=== PATIENT | male | born 1965 | race Caucasian/White ===

== ENCOUNTER → 2019-04-10 09:12 | Outpatient (CLI) | payer OTHER ==
--- NOTE | 2019-04-14 09:55 | EC ---
PATIENT:ADALID CLAYTON DATE OF SERVICE: 04/10/19 SEX: M MEDICAL RECORD: [id number] DATE OF : 63 [facility] AGE OF PATIENT: 53 ADMISSION DATE: 04/10/19 REFERRING PHYSICIAN: INTERPRETING PHYSICIAN: PAM KENT MD ECHOCARDIOGRAM REPORT ECHO CHARGES 4 ECHO COMPLETE Date: 04/10/19 CLINICAL DIAGNOSIS: MURMUR ECHOCARDIOGRAPHIC MEASUREMENTS (adult normal given) AC root (d.<3.7cm) 2.9 cm LV Septum d (<1.2 cm> 1.4 cm Valve Excursion 1.6 cm LV Septum (systole) 1.6 cm Left Atria (s.<4.0cm> 3.6 cm LVPW d(<1.2cm) 1.5 cm RV (d.<2.3cm) 3.9 cm LVPW (sytole) 1.8 cm LV diastole(<5.6CM) 5.5 cm MV E-F(>70mm/sec) cm LV systole 3.9 cm LVOT Diameter 1.8 cm MV exc.(>10mm) 1.2 cm Est.ejection fraction (50-75%) % DOPPLER: LVIT cm/sec A 75.0 cm/sec E 61.0 cm/sec LA cm/sec RVSP 21 mmHg LVOT 105 cm/sec AOP1/2T m/s Asc. Ao 123 cm/sec RVOT 124 cm/sec RA cm/sec PA 140 cm/sec AV Gradient Peak 6.09 mmHg AV Mean 2.95 mmHg AV Area 2.4 cm MV Gradient Peak 4.19 mmHg MV Mean 1.77 mmHg MV Area cm COMMENTS: Director Game: 2 MIKE BENTLEY Hooker Off: 3 Dr. Granados TAPE# PACS Pericardial Effusion N DATE OF SERVICE: Adequate 2D, color flow, spectral Doppler, and M-Mode. Mild LVH. LV internal dimensions are normal. Wall motion is normal. EF is greater than or equal to 55%. Aortic valve is tricuspid. No evidence of stenosis by Doppler interrogation. Left atrium normal at 3.6 cm. Mitral valve shows no prolapse. Trace MR. Right-sided chambers grossly normal. Trace TR. TRANSINT:[id number] Voice Confirmation ID: [id number] DOCUMENT ID: [id number] ECHOCARDIOGRAM REPORT [id number] FORREST,ADALID CALLUM PAM KENT MD at 0955 CC: [id number] DICTATION DATE: 04/11/19 0842 TELECOMMUNICATIONS LINE INSTALLER: 04/11/19 1137 DEP CLI 04/10/19 [facility] [address] [place] [address]
== END | disposition home or self-care (01) ==
LOC: D.HCCARDIO 09:12
PROVIDERS: ATTEND Internal Medicine Cardiovascular Disease
DX: R01.1 Cardiac murmur, unspecified (principal)

== ENCOUNTER 2019-05-12 11:04 | Outpatient (CLI) | payer OTHER ==
[~2019-05-12] VITALS: Ht 182.9 cm; Wt 181.8 kg
--- NOTE | ~2019-05-12 | HEMODYNAMI ---
PATIENT:ADALID CLAYTON MEDICAL RECORD: [id number] : 63 LOCATION:D.CAT ADMISSION DATE: 05/12/19 Generatedon:05/12/201913:31 Patient name: ADALID CLAYTON Patient #: [id number] SSN: : 1965 Date of study: 05/12/2019 Page: Of Hemodynamic Procedure Report Patient Data Patient Demographics Procedure consent was obtained First Name: ADALID Gender: Male Last Name: FORREST : 1965 [facility] Initial: CALLUM Age: 53 year(s) Patient #: [id number] Race: Unknown Additional ID: [id number] Contact details Address: [place] [address] State: [place] City: [place] Zip code: [address] Past Medical History Allergies: No known allergies Admission Admission Data Admission Date: 05/12/2019 Admission Time: 11:04 Weight (lbs.): 401.24 Weight (kg.): 182 Lab Results Lab Result Date: 05/12/2019 Lab Result Time: 0:00 Biochemistry Name Units Result Min Max BUN mg/dl 14 --(--*-)-- 7 18 Creatinine mg/dl 1 --(--*-)-- 0.6 1.3 eGFR ml/min 82.59943 -*(----)-- 90 120 NONAFRICAN CBC Name Units Result Min Max Hematocrit % 43.8 --(*---)-- 42 54 Hemoglobin g/dl 15.4 --(-*--)-- 13.5 17.5 Procedure Procedure Types Cath Procedure Diagnostic Procedure LHC [facility] w/Coronaries Sedation Charges Moderate Sedation up to 15 minutes Procedure Description Procedure Date Procedure Date: 05/12/2019 Procedure Start Time: 13:11 Procedure End Time: 13:28 Procedure Staff Name Function Aramis Lara MD Performing Physician Raina Melton RT Monitor Chun Tejada RT Scrub Jose Nichols RN Nurse Procedure Data Cath Procedure Fluoroscopy Diagnostic fluoroscopy Total fluoroscopy Time: 1.3 time: 1.3 min min Diagnostic fluoroscopy Total fluoroscopy dose: 758 dose: 758 mGy mGy Contrast Material Contrast Material Type Amount (ml) Isovue 300 56 Entry Location Entry Primary Successful Side Size Upsize Upsize Entry Closure Succes sful Closure Location (Fr) 1 (Fr) 2 (Fr) Remarks Device Remarks Femoral Right 5 Fr Exoseal artery Estimated blood loss: 5 ml Diagnostic catheters Device Type Used For End Catheter Placement MULTIPACK JL 4.0 5Fr Procedure catheter MULTIPACK 3DRC 5Fr Procedure catheter MULTIPACK Pigtail 5 Fr Procedure catheter Procedure Complications No complications Procedure Medications Medication Administration Route Dosage 0.9% NaCl I.V. 100 ml/hr Oxygen etCO2 Nasal cannula 2 l/min Heparin Flush Bag added to field 2 bags (1000units/500ml NS) Lidocaine 2% added to field 20 Radial Cocktail added to field 1 syringe (Verapamil 2mg/Nitro 400mcg/Heparin 1500units) Versed I.V. 2 mg Fentanyl I.V. 100 mcg Hemodynamics Rest HGB: 15.4 (g/dl) Heart Rate: 68 (bpm) Pressure Samples Time Site Value (mmHg) Purpose Heart Use Rate(bpm) 13:23 LV 100/8,8 Snapshot 77 13:24 AO 112/79(95) Pullback 76 13:24 LV 108/5,16 Pullback 76 Gradients Valve Time Site 1 Site 2 Mean SEP/DFP Peak To Heart Use (mmHg) (sec/min) Peak Rate (mmHg) (bpm) Aortic 13:24 LV AO 0 76 108/5,16 112/79(95) Calculations Valve P-P Mean Valve Index Valve Source Name Gradient Area Flow (cm2) Aortic 0 0 Snapshots Pre Cath Intra NCS Post Cath Vital Signs Time Heart Resp SPO2 etCO2 NIBP (mmHg) Rhythm Pain Sedation Rate (ipm) (%) (mmHg) Status Level (bpm) 13:00:49 67 14 99 41.1 122/75(94) NSR 0 (11) 10(A) , No pain 13:05:24 65 11 96 44.8 114/66(96) NSR 0 (11) 10(A) , No pain 13:09:56 68 13 95 44.8 121/64(91) NSR 0 (11) 10(A) , No pain 13:14:31 67 13 98 44.8 122/71(94) NSR 0 (11) 9(A) , No pain 13:19:05 74 13 99 42.6 119/69(98) NSR 0 (11) 9(A) , No pain 13:23:38 68 13 99 43.3 97/71(92) NSR 0 (11) 10(A) , No pain 13:29:18 67 13 100 44.1 125/68(101) NSR 0 (11) 10(A) , No pain Medications Time Medication Route Dose Verified Delivered Reason Notes E ffectiveness by by 12:58:31 0.9% NaCl I.V. 100 Jose Jose Per ml/hr Simone Nichols physician RN RN 12:58:42 Oxygen etCO2 2 l/min Jose Jose for low 02 Nasal Lorigan Lorigan sats cannula RN RN 12:58:55 Heparin Flush added 2 bags Jose Jose used for Bag to Lorigan Lorigan procedure (1000units/500ml field RN RN NS) 12:59:09 Lidocaine 2% added 20ml Jose Jose for local to vial Lorigan Lorigan anesthetic field RN RN 12:59:21 Radial Cocktail added 1 Jose Jose used for (Verapamil to syringe Lorigan Lorigan procedure 2mg/Nitro field RN RN 400mcg/Heparin 1500units) 13:08:14 Versed I.V. 2 mg Jose Jose for Lorigan Lorigan sedation RN RN 13:08:23 Fentanyl I.V. 100 mcg Jose Jose for Lorigan Lorigan sedation RN sports analyst Log Time Note 12:40:00 Jose Nichols RN sent for patient. Start room use. 12:46:55 Signed procedure consent form obtained from patient. 12:46:57 Diagnostic Cath status Elective 12:47:08 Time tracking: Regular hours (M-F 7:00 - 5:00) 12:47:11 Plan of Care:Hemodynamics will remain stable., Cardiac rhythm will remain stable., Comfort level will be maintained., Respiratory function will remain adequate., Patient/ family verbilizes understanding of procedure., Procedure tolerated without complication., Recovers from procedure without complications.. 12:58:31 0.9% NaCl 100 ml/hr I.V. was administered by Jose Nichols RN; Per physician; 12:58:42 Oxygen 2 l/min etCO2 Nasal cannula was administered by Jose Nichols RN; for low 02 sats; 12:58:55 Heparin Flush Bag (1000units/500ml NS) 2 bags added to field was administered by Jose Nichols RN; used for procedure; 12:59:09 Lidocaine 2% 20ml vial added to field was administered by Jose Nichols RN; for local anesthetic; 12:59:21 Radial Cocktail (Verapamil 2mg/Nitro 400mcg/Heparin 1500units) 1 syringe added to field was administered by Jose Nichols RN; used for procedure; 12:59:24 Vital chart was started 13:01:01 H&P Date Dictated: 05/12/2019 New H&P dictated by physician.. 13:01:02 Pre-procedure instructions explained to patient. 13:01:02 Pre-op teaching completed and patient verbalized understanding. 13:01:06 Patient received from Pre/Post Procedure Room to CCL 1 Alert and oriented. Tansferred to table in Supine position. 13:01:08 Warm blankets applied, and cassidy hugger turned on for patient comfort. 13:01:09 Correct patient and procedure confirmed by team. 13:01:09 ECG and BP/O2 sat monitors applied to patient. 13:01:11 Baseline sample Acquired. 13:01:15 Rhythm: sinus rhythm 13:01:16 Full Disclosure recording started 13:01:32 Family in patients room. 13:01:34 Patient NPO since Midnight. 13:01:39 Patient allergic to No known allergies 13:01:42 Is patient on blood thinner?No 13:01:44 Patient diabetic? No. 13:01:47 Previous problem with sedation/anesthesia? No ? 13:01:49 Snore? Yes 13:01:50 Sleep apnea? Yes 13:01:50 Deviated septum? No 13:01:51 Opens mouth fully? Yes 13:01:52 Sticks out tongue? Yes 13:01:54 Airway obstruction? No ? 13:01:56 Dentures? No ? 13:01:58 Modified Vinny's test Ulnar < 7 seconds 13:02:00 Patient pain scale 0/10 ?. 13:02:25 IV patent on arrival in left hand with 0.9% NaCl at [facility]. 13:02:49 Lab Result : Creatinine 1 mg/dl 13:02:49 Lab Result : BUN 14 mg/dl 13:02:49 Lab Result : eGFR NONAFRICAN 82.09168 ml/min 13:02:49 Lab Result : Hemoglobin 15.4 g/dl 13:02:49 Lab Result : Hematocrit 43.8 % 13:02:52 Lab results completed and on chart. 13:02:55 Right Radial & Right Groin area was prepped with chlora-prep and draped in sterile fashion 13:02:55 Alarms reviewed by R. N. 13:02:56 Sharps counted by scrub and verified by R.N. 13:02:58 Use device set Radial Dx or PCI 13:02:59 ACIST Syringe (45640) opened to sterile field. 13:03:00 Bag Decanter (2002S) opened to sterile field. 13:03:01 ACIST Hand Control (40780) opened to sterile field. 13:03:01 ACIST Manifold (17458) opened to sterile field. 13:03:01 Tegaderm 4 x 4 (1626W) opened to sterile field. 13:03:04 Medline Cath Pack ([id number]) opened to sterile field. 13:03:06 MBrace Wrist Support ([id number]) opened to sterile field. 13:03:07 SHEATH 6FR Slender (47-1830) opened to sterile field. 13:03:08 EMERALD Guide Wire (780-453) opened to sterile field. 13:05:34 Patient Weight : 401.24 lbs 13:05:42 --------ALL STOP TIME OUT------ 13:05:42 Final Timeout: patient, procedure, and site verified with staff and physician. All members of the team are in agreement. 13:05:44 Right Radial & Right Groin site verified by team. 13:05:48 Fire Safety Assessment: A--An alcohol-based skin anteseptic being used preoperatively., C--Open oxygen or nitrous oxide is being used., D--An ESU, laser, or fiber-optic light is being used. 13:05:51 Physical assessment completed. ASA score P 2 - A patient with mild systemic disease as per Aramis Lara MD. 13:06:04 2) 60-89 Mildly reduced kidney function, and other findings (as for stage 1) point to kidney disease. 13:06:29 Maximum allowable contrast does (3.7 X eGFR X 0.75)230 ml. 13:06:33 Sedation plan: IV Moderate Sedation Medication:Versed, Fentanyl 13:08:14 Versed 2 mg I.V. was administered by Jose Nichols RN; for sedation; 13:08:23 Fentanyl 100 mcg I.V. was administered by Jose Nichols RN; for sedation; 13:11:25 Procedure started. 13:11:37 Zero performed for pressure channel P1 13:11:50 Local anesthetic to right radial artery with Lidocaine 2% by Aramis Lara MD.INITIAL ACCESS ONLY 13:15:13 UNABLE TO GET RADIAL ACCESS. WILL PROCEED TO GROIN 13:15:19 SHEATH 5FR Macon (ENJ400) opened to sterile field. 13:15:34 Use device set Multipack Set 13:15:38 DIAGNOSTIC Multipack 5Fr catheter set (LO1502) opened to sterile field. 13:16:24 Local anesthetic to right femoral artery with Lidocaine 2% by Aramis Lara MD.ADDITIONAL ACCESS 13:17:13 A 5 Fr sheath was inserted into the Right Femoral artery 13:17:58 A MULTIPACK JL 4.0 5Fr catheter was advanced over the wire and used for Procedure. 13:18:39 LCA angiography performed. 13:19:26 Catheter removed. 13:21:13 A MULTIPACK 3DRC 5Fr catheter was advanced over the wire and used for Procedure. 13:21:59 RCA angiography performed. 13:22:01 Catheter removed. 13:22:16 Zero performed for pressure channel P1 13:23:13 A MULTIPACK Pigtail 5 Fr catheter was advanced over the wire and used for Procedure. 13:23:17 LV gram done using OVALLE 13:23:20 Injector settings: Ml/sec: 10, Volume: 20, 13:23:56 LV hemodynamics recorded. 13:24:06 EF : 55 % 13:24:10 Catheter removed. 13:24:16 EXOSEAL 5Fr (EX500) opened to sterile field. 13:25:12 Sheath removed intact; hemostasis achieved with Exoseal to the Right Femoral artery. 13:25:18 Procedure ended.(Physican Out) 13:25:31 Fluoroscopy time 01.30 minutes. 13:25:36 Flurop Dose total: 758 13:25:36 Fluoroscopy dose: 758 mGy 13:25:39 Contrast amount:Isovue 300 56ml. 13:25:41 Sharps counted by scrub and verified by R.N. 13:25:45 Post-op/insertion site Right Femoral artery dressed using a 4 x 4 and Tegaderm. 13:25:47 Post-procedure physical assessment completed. ASA score P 2 - A patient with mild systemic disease as per Aramis Lara MD. 13:25:50 Post procedure rhythm: sinus rhythm 13:25:53 Estimated blood loss: 5 ml 13:25:55 Post procedure instruction explained to patient.Patient verbalizes understanding. 13:25:55 Patient needs reinforcement of post procedure teaching. 13:27:02 Procedure type changed to Cath procedure, Diagnostic procedure, LHC, LHC w/Coronaries, Sedation Charges, Moderate Sedation up to 15 minutes 13:27:54 Procedure and supply charges have been captured, reviewed, submitted and are correct. 13:28:03 Procedure Complication : No complications 13:28:05 Vital chart was stopped 13:28:09 Report given to Pre/Post Procedure Room. 13:28:10 See physician's report for complete and final results. 13:28:13 Patient transfered to Pre/Post Procedure Room with Bed. 13:28:14 Procedure ended. 13:28:14 Full Disclosure recording stopped 13:29:14 End room use (Document Last) Device Usage Item Name Manufacture Quantity Catalog Hospital Part Current Minimal Lot# / Number Charge Number Stock Stock Serial# Code ACIST Acist 1 36085 725685 145598 850756 20 Syringe Medical (50877) Systems Inc Bag Microtek 1 413303 44074 658607 5 Decanter Medical Inc. () ACIST Hand Acist 1 28288 495586 420625 409224 5 Control Medical (32995) Systems Inc ACIST Acist 1 75796 275513 601438 762632 5 Manifold Medical (23518) Systems Inc Tegaderm 4 3M 1 1626W 425536 522391 827745 5 x 4 (1626W) Medline Medline 1 [id number] 962310 72677 699392 5 Cath Pack ([id number]) MBrace Advanced 1 140-0250-00 497128 04625 380609 5 Wrist Vascular Support Dynamics ([id number]) SHEATH 6FR Terumo 1 [id number] 462924 665378 460181 5 Slender (80-1060) EMERALD Cardinal 1 502-447 523860 556909 193268 5 Guide Wire Health (502455) SHEATH 5FR Terumo 1 [id number] 086803 293289 830759 5 [place] (KXF052) DIAGNOSTIC Cardinal 1 ML4550 541488 40177 194250 30 Multipack Health 5Fr catheter set (CC4257) MULTIPACK Cardinal 1 674299 5 JL 4.0 5Fr Health catheter MULTIPACK Cardinal 1 530684 5 3DRC 5Fr Health catheter MULTIPACK Cardinal 1 556405 5 Pigtail 5 Health Fr catheter EXOSEAL 5Fr Cardinal 1 EX500 794566 684659 343222 10 (EX500) Health Signature Audit [place] Stage Time Signature Unsigned Intra-Procedure 05/12/2019 Raina Melton 1:31:55 PM RT(R) Signatures Monitor : Raina Melton Signature : RT Date : Time : [facility] [address] [place] [address]
[2019-05-12] MEDS ORDERED: NEURONTIN 300300 MG PO (11:15)
[2019-05-12] MEDS ORDERED: CYMBALTA30 MG PO (11:16)
[2019-05-12] MEDS ORDERED: BACLOFEN10 MG PO (11:16)
[2019-05-12] MEDS ORDERED: LIPITOR20 MG PO (11:17)
[2019-05-12] MEDS ORDERED: ZYLOPRIM300 MG PO (11:17)
[2019-05-12 11:39] VITALS: BP 151/93; Ht 182.9 cm; Wt 181.8 kg
[2019-05-12 12:21] LABS: BASOPHILS 0 % (0-2); EOSINOPHILS 0 % (0-7); HEMATOCRIT 43.8 % (42.0-54.0); HEMOGLOBIN 15.4 g/dL (13.5-17.5); LYMPHOCYTES 45.5 % (15-50); MCH 32.8 pg (26.0-34.0); MCHC 35.2 g/dL (31.0-37.0); MCV 93.4 fL (80.0-100.0); MEAN PLATELET VOLUME 9.9 fL (7.4-10.4); MONOCYTES 6.4 % (2-11); NEUTROPHILS 48.1 % (40-80); PLATELET COUNT 159 10x3/uL (130-400); RBC 4.69 10x6/uL (4.20-6.10); RDW 13.1 % (11.5-14.5)
[2019-05-12 12:30] LABS: CALC OSMOLALITY 281 mosm/kg (275-300); CALCIUM 8.9 mg/dL (8.5-10.1); CARBON DIOXIDE 31.4 mmol/L (21.0-32.0); CHLORIDE - SERUM 104 mmol/L (98-107); GLUCOSE 100 mg/dL (74-106); POTASSIUM - SERUM 3.8 mmol/L (3.5-5.1); SODIUM 141 mmol/L (136-145); UREA NITROGEN 14 mg/dL (7-18); eGFR NON AFRICAN AMERICAN 83 mL/min (90-120)
--- NOTE | 2019-05-12 13:42 | NUR ---
PT ARRIVED BY STRETCHER. FAMILY AT BEDSIDE. DR. MEDRANO ROUNDED AND SPOKE WITH PT'S FAMILY. PT PLACED ON MONITORS AND ASSESMENT COMPLETED.
--- NOTE | 2019-05-12 14:02 | NUR ---
RIGHT GROIN DRESSING C/D/I. NO S/S OF HEMATOMA NOTED. CALL LIGHT WITHIN REACH. FAMILY AT BEDSIDE. VSS.
--- NOTE | 2019-05-12 14:30 | NUR ---
PT RESTING COMFORTABLY. VSS. RIGHT GROIN DRESSING C/D/I. NO S/S OF HEMATOMA NOTED. FAMILY AT BEDSIDE.
--- NOTE | 2019-05-12 15:00 | NUR ---
HEAD OF BED INC TO 30 DEGREES. PT TOLERATED WELL. RIGHT GROIN DRESSING C/D/I. NO S/S OF HEMATOMA NOTED. PT SET UP SANDWICH TRAY AND DRINK. DENIES NAUSEA/PAIN AT THIS TIME.
--- NOTE | 2019-05-12 15:46 | NUR ---
LEFT ARM PIV D/C'D WITH CATH TIP INTACT. PT TOLERATED WELL. INSTRUCTED TO GET UP AND DRESSED. DISCUSSED DISCHARGE INSTRUCTIONS WITH PT AND PT'S FAMILY. THEY VOICED UNDERSTANDING. RIGHT GROIN DRESSING C/D/I. NO S/S OF HEMATOMA NOTED.
--- NOTE | 2019-05-12 15:50 | NUR ---
PT TO RESTROOM. VOIDED WITHOUT DIFFICULTY. TAKEN OUT TO VEHICLE BY WHEELCHAIR. NO S/S OF DISTRESS NOTED. ALL BELONGINGS AND PAPERWORK IN HAND.
--- NOTE | 2019-05-13 09:00 | HP ---
PATIENT: ADALID KRAMER MEDICAL RECORD: [id number] ACCOUNT: [id number] LOCATION:DMeryCAT : 63 ADMISSION DATE: 05/12/19 PCP: LIZA MARTINEZ HISTORY AND PHYSICAL EXAMINATION HISTORY OF PRESENT ILLNESS: Adalid Kramer is a 53-year-old gentleman with no known history of coronary artery disease. He has a history of hypertension and hyperlipidemia, was seen in the office with angina, found to have positive Cardiolite stress testing with 2-vessel distribution. He was brought to cheesemaking laborer for delineation anatomy. PAST MEDICAL HISTORY: Includes: 1. History of hypertension. 2. Hyperlipidemia. ALLERGIES: None known. MEDICATIONS: Include allopurinol 300 at bedtime, Neurontin 600 b.i.d., Cymbalta 300 at bedtime, atorvastatin 20 every day. PHYSICAL EXAMINATION: GENERAL: Pleasant gentleman, in no acute distress, appears stated age. HEENT: Normocephalic, atraumatic. NECK: No bruits noted. HEART: Regular. LUNGS: Good air excursion. ABDOMEN: Soft, nontender. EXTREMITIES: Pulses 2+. No edema. IMPRESSION: Angina with nuclear stress testing consistent with 2-vessel distribution. PLAN: Angiography and intervention based on above. TRANSINT:[id number] Voice Confirmation ID: [id number] DOCUMENT ID: [id number] PAM KENT MD at 0900 CC: [id number] DICTATION DATE: 05/12/19 1303 BEAN SORTER: 05/12/19 1332 DEP CLI 05/12/19 [place] [id number] [place] [id number]
--- NOTE | 2019-05-13 09:00 | OP ---
PATIENT NAME: ADALID CLAYTON MEDICAL RECORD: [id number] :63 LOCATION:D.CAT ADMISSION DATE: SURGEON: PAM KENT MD DATE OF OPERATION: 05/12/2019 PROCEDURE: Left heart catheterization, selective coronary angiography, right femoral artery approach. CATHETERS: A 5-St Helenian sheath, 5/4 Zamzam, 5/4 pig. The procedure was well tolerated. The patient was returned to the still, sheath removed. Adequate hemostasis was obtained. FINDINGS: Left ventriculography in 30-degree OVALLE view: Normal wall motion and normal systolic function. CORONARY ANATOMY: LEFT MAIN: Left main is free of disease. LAD: Free of disease in the marginal system. RIGHT CORONARY ARTERY: Dominant artery, gives rise to PDA, free of disease. IMPRESSION: Normal LV systolic function. Normal coronary anatomy. TRANSINT:[id number] Voice Confirmation ID: [id number] DOCUMENT ID: [id number] PAM KENT MD at 0900 CC: [id number] DICTATION DATE: 05/12/19 1335 MANAGER MATERIALS MANAGEMENT: 05/12/19 1440 DEP CLI 05/12/19 [place] [id number] [place] [address]
== END 2019-05-12 15:50 | disposition home or self-care (01) ==
LOC: D.CATH 11:04
PROVIDERS: ATTEND Internal Medicine Interventional Cardiology
DX: R94.30 Abnormal result of cardiovascular function study, unspecified (principal); I20.0 Unstable angina; E78.5 Hyperlipidemia, unspecified; I10 Essential (primary) hypertension

== ENCOUNTER 2019-09-07 19:47 | Emergency (ER) | payer OTHER ==
[~2019-09-07] VITALS: Ht 182.9 cm; Wt 181.4 kg
[~2019-09-07 19:47] MED LIST: BACLOFEN10 MG PO; CYMBALTA30 MG PO; LIPITOR20 MG PO; NEURONTIN 300300 MG PO; ZYLOPRIM300 MG PO
[2019-09-07 19:51] VITALS: Ht 182.9 cm; Wt 181.4 kg
[2019-09-07] MEDS ORDERED: ASPIRIN325 MG PO (19:53)
[2019-09-07 20:14] LABS: BASOPHILS 0.3 % (0-2); EOSINOPHILS 0 % (0-7); HEMATOCRIT 39.9 % (42.0-54.0); HEMOGLOBIN 13.7 g/dL (13.5-17.5); IMMATURE GRANULOCYTES 0.3 % (0-5); LYMPHOCYTES 27.3 % (15-50); MCH 33.1 pg (26.0-34.0); MCHC 34.3 g/dL (31.0-37.0); MCV 96.4 fL (80.0-100.0); MEAN PLATELET VOLUME 9.6 fL (7.4-10.4); MONOCYTES 5.6 % (2-11); NEUTROPHILS 66.5 % (40-80); PLATELET COUNT 168 10x3/uL (130-400); RBC 4.14 10x6/uL (4.20-6.10); RDW 13.1 % (11.5-14.5); WBC 7.1 10x3/uL (4.8-10.8)
[2019-09-07 20:18] LABS: CALC OSMOLALITY 285 mosm/kg (275-300); CALCIUM 8.5 mg/dL (8.5-10.1); CARBON DIOXIDE 29.4 mmol/L (21.0-32.0); CHLORIDE - SERUM 106 mmol/L (98-107); CREATININE - SERUM 0.9 mg/dL (0.6-1.3); GLUCOSE 111 mg/dL (74-106); POTASSIUM - SERUM 3.9 mmol/L (3.5-5.1); SODIUM 142 mmol/L (136-145); UREA NITROGEN 18 mg/dL (7-18); eGFR NON AFRICAN AMERICAN > 90 mL/min (90-120)
[2019-09-07 20:23] LABS: APTT 31.6 SECONDS (22.8-39.4); INR 1.03 (0.85-1.17)
[2019-09-07 20:35] LABS: ALBUMIN 3.7 g/dL (3.4-5.0); ALKALINE PHOSPHATASE 61 U/L (46-116); ALT (SGPT) 50 U/L (10-68); AMYLASE - SERUM 27 U/L (25-115); BILIRUBIN - TOTAL 0.49 mg/dL (0.2-1.3); CKMB 2.5 U/L (0.0-3.6); CREATINE KINASE 271 UL (21-232); LIPASE 78 U/L (73-393); PROTEIN - SERUM 7.3 g/dL (6.4-8.2); TROPONIN-I < 0.017 ng/mL (0.000-0.060)
[2019-09-07 20:49] LABS: APPEARANCE CLEAR (CLEAR); BILIRUBIN NEGATIVE (NEGATIVE); COLOR YELLOW (YELLOW); GLUCOSE NEGATIVE (NEGATIVE); KETONE NEGATIVE (NEGATIVE); NITRITE NEGATIVE (NEGATIVE); PROTEIN NEGATIVE (NEGATIVE); UROBILINOGEN NORMAL (NORMAL)
[2019-09-07] MEDS ORDERED: ULTRAM50 MG PO (22:12)
[2019-09-07] MEDS ORDERED: MIRALAX17 GM PO (22:12)
[2019-09-07] MEDS ORDERED: OMEPRAZOLE20 M1 PO (22:12)
[2019-09-07 22:29] VITALS: BP 151/85
== END 2019-09-07 22:29 | disposition home or self-care (01) ==
LOC: D.ER 19:47
PROVIDERS: Family Medicine
DX: R10.9 Unspecified abdominal pain (principal); K21.9 Gastro-esophageal reflux disease without esophagitis; K59.00 Constipation, unspecified

== ENCOUNTER 2019-11-24 10:59 | Day surgery (SDC) | payer OTHER ==
[~2019-11-24] VITALS: Ht 182.9 cm; Wt 177.3 kg
[~2019-11-24 10:59] MED LIST changes: +ASPIRIN325 MG PO; +MIRALAX17 GM PO; +OMEPRAZOLE20 M1 PO; +ULTRAM50 MG PO
[2019-11-24 11:42] LABS: BASOPHILS 0 % (0-2); EOSINOPHILS 1.5 % (0-7); HEMATOCRIT 43.2 % (42.0-54.0); HEMOGLOBIN 15.1 g/dL (13.5-17.5); LYMPHOCYTES 42.4 % (15-50); MCH 32.3 pg (26.0-34.0); MCV 92.5 fL (80.0-100.0); MEAN PLATELET VOLUME 9.4 fL (7.4-10.4); MONOCYTES 9.9 % (2-11); NEUTROPHILS 46.2 % (40-80); PLATELET COUNT 157 10x3/uL (130-400); RBC 4.67 10x6/uL (4.20-6.10); RDW 12.8 % (11.5-14.5); WBC 3.2 10x3/uL (4.8-10.8)
[2019-11-24 11:44] LABS: CALC OSMOLALITY 278 mosm/kg (275-300); CALCIUM 8.7 mg/dL (8.5-10.1); CARBON DIOXIDE 29.1 mmol/L (21.0-32.0); CHLORIDE - SERUM 102 mmol/L (98-107); GLUCOSE 88 mg/dL (74-106); POTASSIUM - SERUM 3.8 mmol/L (3.5-5.1); SODIUM 141 mmol/L (136-145); UREA NITROGEN 9 mg/dL (7-18); eGFR NON AFRICAN AMERICAN 82 mL/min (90-120)
[2019-11-24 12:17] VITALS: BP 138/84; Ht 182.9 cm; Wt 177.3 kg
--- NOTE | 2019-11-24 14:29 | NUR ---
1400 IV DC'D. CATHETER TIP INTACT. NO BLEEDING AT SITE. BANDAID APPLIED.
--- NOTE | 2019-11-25 07:42 | OP ---
PATIENT NAME: ADALID CLAYTON MEDICAL RECORD: [id number] :63 LOCATION:D.[facility] ADMISSION DATE: SURGEON: NATALIA MCKEON DO DATE OF OPERATION: 11/24/2019 PROCEDURES: Colonoscopy with polypectomy. INDICATIONS FOR PROCEDURE: Lower abdominal pain and unspecified constipation. SCOPE: Olympus video pediatric colonoscope. MEDICATIONS: Propofol 480 mg IV per anesthesia. WITHDRAWAL TIME: 11 minutes. FINDINGS: Informed consent was given. The patient was made comfortable with the above medication. After reaching an adequate level of sedation by slow IV push, the patient was placed on his left side. A digital rectal examination was performed and was normal. The endoscope was then advanced under direct visualization through the rectum to the cecum, confirmed by the presence of the appendiceal orifice and ileocecal valve. The endoscope was slowly withdrawn and mucosa was carefully examined. The prep quality was good. There were 2 polyps visualized on today's examination. One was located in the sigmoid colon, it was a benign-appearing sessile polyp, which measured approximately 3 mm in diameter. It was removed using hot forceps. In the descending colon, there was a benign-appearing sessile polyp, which measured approximately 7 mm in diameter. It was removed using hot snare. There were no other polyps visualized on today's examination. There were no diverticula seen. Retroflexion was performed in the rectum with visualization of grade I internal hemorrhoids without bleeding. The endoscope was withdrawn from the patient. The patient tolerated the procedure well and there were no complications. IMPRESSION: 1. Two polyps as described above, removed using a combination of a hot snare and hot forceps. 2. Grade I internal hemorrhoids without bleeding. PLAN AND RECOMMENDATIONS: 1. Discharge home when recovery parameters are met. 2. Follow up biopsy specimen results. 3. High-fiber diet. 4. Supplement diet with 1 tablespoon of fiber daily. 5. Dicyclomine 20 mg p.o. t.i.d. p.r.n. abdominal pain or loose stools. 6. Proceed with EGD as scheduled. 7. Follow up in the GI clinic after EGD. 8. Recall colonoscopy in 5 years. TRANSINT:[id number] Voice Confirmation ID: [id number] DOCUMENT ID: [id number] OPERATIVE REPORT [id number] ADALID CLAYTON NATALIA MCKEON DO at 0742 CC: [id number] DICTATION DATE: 11/24/19 1321 ROASTER HELPER: 11/24/19 1851 [facility] 11/24/19 [place] [place] [address]
== END 2019-11-24 14:06 | disposition home or self-care (01) ==
LOC: D.OPS 10:59
PROVIDERS: Anesthesiology; ATTEND Internal Medicine Gastroenterology
DX: R13.10 Dysphagia, unspecified (principal); R10.30 Lower abdominal pain, unspecified; K59.00 Constipation, unspecified

== ENCOUNTER 2020-01-18 14:22 | Observation (INO) | payer OTHER ==
[~2020-01-18] VITALS: Ht 182.9 cm; Wt 175.0 kg
[2020-01-18 16:14] LABS: BASOPHILS 0.3 % (0-2); EOSINOPHILS 2.3 % (0-7); HEMATOCRIT 40.3 % (42.0-54.0); HEMOGLOBIN 14.2 g/dL (13.5-17.5); LYMPHOCYTES 28.7 % (15-50); MCH 32.7 pg (26.0-34.0); MCHC 35.2 g/dL (31.0-37.0); MCV 92.9 fL (80.0-100.0); MEAN PLATELET VOLUME 9.3 fL (7.4-10.4); MONOCYTES 8.6 % (2-11); NEUTROPHILS 60.1 % (40-80); PLATELET COUNT 152 10x3/uL (130-400); RBC 4.34 10x6/uL (4.20-6.10); WBC 3.9 10x3/uL (4.8-10.8)
[2020-01-18 16:23] LABS: CALC OSMOLALITY 278 mosm/kg (275-300); CALCIUM 8.6 mg/dL (8.5-10.1); CARBON DIOXIDE 29.1 mmol/L (21.0-32.0); CHLORIDE - SERUM 104 mmol/L (98-107); CREATININE - SERUM 0.9 mg/dL (0.6-1.3); GLUCOSE 102 mg/dL (74-106); SODIUM 140 mmol/L (136-145); UREA NITROGEN 13 mg/dL (7-18); eGFR NON AFRICAN AMERICAN > 90 mL/min (90-120)
[2020-01-18 16:24] LABS: APTT 33.4 SECONDS (22.8-39.4); INR 1.01 (0.85-1.17); PROTIME 13.3 SECONDS (11.6-15.0)
[2020-01-18 16:30] LABS: ALBUMIN 3.8 g/dL (3.4-5.0); ALKALINE PHOSPHATASE 52 U/L (30-120); ALT (SGPT) 42 U/L (10-68); BILIRUBIN - TOTAL 0.56 mg/dL (0.2-1.3); PROTEIN - SERUM 7.1 g/dL (6.4-8.2)
[2020-01-18 17:47] VITALS: BP 126/61; BMI 52.3
[2020-01-18 18:42] VITALS: Ht 182.9 cm; Wt 175.0 kg
--- NOTE | 2020-01-18 19:05 | NUR ---
BEDSIDE REPORT RECEIVED FROM DAY SHIFT, PT CARE ASSUMED. INTRODUCED SELF AND WROTE NAME ON BOARD. PT SITTING UP IN BED, WATCHING TV, AAOX4. DENIES ANY NEEDS AT THIS TIME. BED IN LOWEST POSITION, SR X2, CALL LIGHT WITHIN REACH. WILL CONTINUE TO MONITOR.
--- NOTE | 2020-01-18 19:21 | NUR ---
PT TO MRI VIA WHEELCHAIR ACCOMPANIED BY TECH.
[2020-01-18 20:15] VITALS: BP 124/67
--- NOTE | 2020-01-18 21:13 | NUR ---
EMPTIED 250 ML CLEAR YELLOW URINE FROM URINAL. PT REQUESTING DRINK AND SNACK, PROVIDED. DENIES ANY OTHER NEEDS AT THIS TIME. BED IN LOWEST POSITION, SR X2, CALL LIGHT, CELL PHONE, AND URINAL WITHIN REACH. WILL CONTINUE TO MONITOR.
[2020-01-19] VITALS: BP 128/73
[2020-01-19 04:24] VITALS: BP 132/77
[2020-01-19 05:24] LABS: BASOPHILS 0.3 % (0-2); EOSINOPHILS 3.6 % (0-7); HEMATOCRIT 38.6 % (42.0-54.0); HEMOGLOBIN 13.3 g/dL (13.5-17.5); MCH 32.1 pg (26.0-34.0); MCHC 34.5 g/dL (31.0-37.0); MCV 93.2 fL (80.0-100.0); MEAN PLATELET VOLUME 9.9 fL (7.4-10.4); NEUTROPHILS 39.1 % (40-80); PLATELET COUNT 143 10x3/uL (130-400); RBC 4.14 10x6/uL (4.20-6.10); RDW 13.1 % (11.5-14.5); WBC 3.9 10x3/uL (4.8-10.8)
[2020-01-19 05:54] LABS: ALBUMIN 3.5 g/dL (3.4-5.0); ALKALINE PHOSPHATASE 49 U/L (30-120); ALT (SGPT) 37 U/L (10-68); BILIRUBIN - TOTAL 0.53 mg/dL (0.2-1.3); CALC OSMOLALITY 282 mosm/kg (275-300); CALCIUM 8.2 mg/dL (8.5-10.1); CARBON DIOXIDE 28.1 mmol/L (21.0-32.0); CHLORIDE - SERUM 105 mmol/L (98-107); CREATININE - SERUM 0.9 mg/dL (0.6-1.3); GLUCOSE 103 mg/dL (74-106); POTASSIUM - SERUM 4.3 mmol/L (3.5-5.1); PROTEIN - SERUM 6.2 g/dL (6.4-8.2); SODIUM 142 mmol/L (136-145); UREA NITROGEN 12 mg/dL (7-18); eGFR NON AFRICAN AMERICAN > 90 mL/min (90-120)
[2020-01-19 07:29] VITALS: BP 126/78
--- NOTE | 2020-01-19 07:54 | NUR ---
PT PROVIDED WITH BREAKFAST PER DR FERRO'S ORDER. PT WILL DC HOME TODAY.
[2020-01-19] MEDS ORDERED: HYDROCODON-ACE1 EA10 PO (13:02)
--- NOTE | 2020-01-19 13:58 | NUR ---
PT DISCHARGE INSTRUCTIONS REV'D AND PT STATES UNDERSTANDING. PT GIVEN HARD SCRIPT FOR PAIN MEDICATION. PT DISCHARGING HOME WITH SPOUSE AT THIS TIME.
--- NOTE | 2020-01-19 17:15 | MORECARE ---
CASE MANAGEMENT DISCHARGE SUMMARY PATIENT: ADALID CLAYTON UNIT: [id number] ADM DATE: 01/18/20 AGE: 54 : 63 SEX: M ROOM/BED: D.1205 AUTHOR: LILIYA TINSLEY PHYSICIAN: REFERRING PHYSICIAN: KERRIE KITCHEN MD DATE OF SERVICE: 01/19/20 Discharge Plan Patient Name: ADALID CLAYTON Facility: [facility]:[place] : 1965 Planned Disposition: Anticipated Discharge Date: Discharge Date: 01/19/2020 Expected LOS: Initial Reviewer: [email or web address] Initial Review Date: 01/18/2020 Generated: 01/19/20 6:14 pm DCP- Discharge Planning Updated by [email or web address]: Chasity Aguilera on 01/19/20 8:[address] COWAN delivered, explained, signed by the patient, and placed in the chart. Signed form also left with patient. Chasity Aguilera RN, CCM Coverage Notice Reviewer: [email or web address] - Chasity Aguilera Notice Issued Date-Time: 01/19/2020 9:17 Notice Type: Medicare Outpatient Observation Notice Notice Delivered To: Patient Relationship to Patient: Broadcast Supervisor Name: Delivery Method: - Rupa Days: Prior Verbal Notification: Recipient Understood Notice: Yes Recipient Signature: Yes Med Rec Note Co-signed by Attending: Coverage Notice Comment: COWAN delivered, explained, signed by the patient, and placed in the chart. Signed form also left with patient. Chasity Aguilera RN , CCM Patient Name: ADALID CLAYTON Page [id number] at 1715 All edits/amendments must be made on the electronic document DICTATION DATE: 01/19/201713 ROD MACHINE OPERATOR: DAVID 01/19/201713 RPT#: [id number] DC DATE:01/19/20 STATUS: DIS IN [facility] [address] [place] [address] END OF REPORT
== END 2020-01-19 13:59 | disposition home or self-care (01) ==
LOC: D.ER 14:22 → D.M3 16:00 → OBSVTIME 17:30 → D.M3 01-19 13:59
PROVIDERS: Family Medicine; ADMIT Family Medicine; ATTEND Family Medicine
DX: S83.281A Other tear of lateral meniscus, current injury, right knee, initial encounter (principal); W19.XXXA Unspecified fall, initial encounter; M23.91 Unspecified internal derangement of right knee; M17.11 Unilateral primary osteoarthritis, right knee; S80.01XA Contusion of right knee, initial encounter

== ENCOUNTER → 2021-01-25 13:32 | Outpatient (CLI) | payer OTHER ==
[2020-01-18 18:42] VITALS: BMI 52.3
[~2021-01-25 13:32] MED LIST changes: +HYDROCODON-ACE1 EA10 PO
--- NOTE | 2021-01-26 10:02 | EC ---
PATIENT:ADALID CLAYTON DATE OF SERVICE: 01/25/21 SEX: M MEDICAL RECORD: [id number] DATE OF : 63 [facility] AGE OF PATIENT: 55 ADMISSION DATE: 01/25/21 REFERRING PHYSICIAN: INTERPRETING PHYSICIAN: PAM KENT MD ECHOCARDIOGRAM REPORT ECHO CHARGES 4 ECHO COMPLETE Date: 01/25/21 CLINICAL DIAGNOSIS: CHEST PAIN, HEART MURMUR ECHOCARDIOGRAPHIC MEASUREMENTS (adult normal given) AC root (d.<3.7cm) 3.2 cm LV Septum d (<1.2 cm> 1.1 cm Valve Excursion 1.6 cm LV Septum (systole) 1.3 cm Left Atria (s.<4.0cm> 4.0 cm LVPW d(<1.2cm) 1.3 cm RV (d.<2.3cm) 3.7 cm LVPW (sytole) 1.4 cm LV diastole(<5.6CM) 5.3 cm MV E-F(>70mm/sec) cm LV systole 4.0 cm LVOT Diameter 1.8 cm MV exc.(>10mm) cm Est.ejection fraction (50-75%) % DOPPLER: LVIT cm/sec A 88.0 cm/sec E 100.0 cm/sec LA cm/sec RVSP 26 mmHg LVOT 106 cm/sec AOP1/2T m/s Asc. Ao 143 cm/sec RVOT cm/sec RA cm/sec PA cm/sec AV Gradient Peak 8.23 mmHg AV Mean 4.22 mmHg AV Area 1.7 cm MV Gradient Peak 4.86 mmHg MV Mean 2.05 mmHg MV Area cm COMMENTS: Paleontology Teacher: 2 MIKE BENTLEY Bean Weigher: 3 Dr. Granados TAPE# PACS Pericardial Effusion N DATE OF SERVICE: Adequate 2D, color flow imaging, spectral Doppler, and M-Mode. Mild LVH. LV internal dimensions are normal. Wall motion normal. EF greater than or equal to 55%. Aortic valve is tricuspid. No evidence of stenosis by Doppler interrogation. Left atrium is normal at 4.0 cm. Mitral valve shows no prolapse. Mild MR. Right-sided chambers are grossly normal. Trace TR. TRANSINT:[id number] Voice Confirmation ID: [id number] DOCUMENT ID: [id number] ECHOCARDIOGRAM REPORT [id number] FORREST,ADALID CALLUM PAM KENT MD at 1002 CC: [id number] DICTATION DATE: 01/25/21 1529 RECORD KEEPER: 01/25/21 2322 DEP CLI 01/25/21 [id number] [place] [address]
== END | disposition home or self-care (01) ==
LOC: D.HCCECHO 13:32
PROVIDERS: ATTEND Internal Medicine Interventional Cardiology
DX: R07.9 Chest pain, unspecified (principal)